=== PATIENT | male | born 1990 | race African-American/Black ===

== ENCOUNTER 2020-01-05 04:03 | Emergency (ER) | payer OTHER ==
[~2020-01-05] VITALS: Ht 177.8 cm; Wt 81.7 kg
[2020-01-05 05:45] LABS: ANION GAP 6 mmol/L (7-16); BUN 17 mg/dL (7-18); CALCIUM 8.2 mg/dL (8.5-10.1); CHLORIDE 100 mmol/L (98-107); CO2 29 mmol/L (21-32); CREATININE 1.3 mg/dL (0.7-1.3); GLUCOSE 112 mg/dL (74-106); POTASSIUM 4.3 mmol/L (3.5-5.1); SODIUM 135 mmol/L (136-145)
[2020-01-05 05:46] LABS: ABSOLUTE NEUTROPHILS 3.1 thou/uL (1.4-8.2); BASOPHILS 0.9 % (0.0-2.0); EOSINOPHILS 1.4 % (0.0-3.0); HEMATOCRIT 46.9 % (42.0-52.0); HEMOGLOBIN 15.5 gm/dL (14.0-18.0); LYMPHOCYTES 24.4 % (24.0-44.0); MCH 29.4 pg (26.0-34.0); MCV 89.2 fL (80.0-100.0); MONOCYTES 7.7 % (1.0-8.0); PLATELET COUNT 142 thou/uL (150-400); POLYS 65.6 % (36.0-66.0); RBC 5.26 mil/uL (4.50-6.00); RDW 13.5 % (10.5-14.5); WBC 4.7 thou/uL (4.0-11.0)
[2020-01-05 05:56] LABS: ALBUMIN 3.9 g/dL (3.4-5.0); MAGNESIUM 1.8 mg/dL (1.8-2.4); SGOT 28 U/L (15-37); SGPT 25 U/L (30-65); TOTAL BILIRUBIN 0.4 mg/dL (0.2-1.0); TOTAL PROTEIN 7.5 g/dL (6.4-8.2); TROPONIN-I <0.06 ng/mL (<0.06)
[2020-01-05 06:43] LABS: URINE BILIRUBIN NEGATIVE (Negative); URINE BLOOD NEGATIVE (Negative); URINE CLARITY CLEAR; URINE COLOR YELLOW; URINE GLUCOSE-RANDOM* NEGATIVE (Negative); URINE KETONES NEGATIVE (Negative); URINE LEUKOCYTES-REFLEX NEGATIVE (Negative); URINE NITRITE-REFLEX NEGATIVE (Negative); URINE PROTEIN (DIPSTICK) NEGATIVE (Negative); URINE SPECIFIC GRAVITY >= 1.030 (1.005-1.035); URINE UROBILINOGEN 0.2 E.U./dl (0.2-1.0)
[2020-01-05 07:24] LABS: AMP/METHAMP Negative (Negative); BARBITURATES Negative (Negative); BENZODIAZEPINES Negative (Negative); COCAINE Negative (Negative); METHADONE Negative (Negative); OPIATES Negative (Negative); PCP Negative (Negative)
[2020-01-05] MEDS ORDERED: MOBIC15 MG PO (07:26)
[2020-01-05 07:39] VITALS: BP 117/62
--- NOTE | 2020-01-05 14:50 | NUR ---
CALLED PT AT 14:44 TO NOTIFY OF RESULTS. PT HUNG UP PHONE PRIOR TO GIVING PT RESULTS. WHEN CALLED PT AGAIN, RECEIVED MESSAGE THAT MAILBOX WAS NOT SET UP. CALLED NEXT OF KIN TO NOTIFY PT THAT THEY NEED TO CALL ED DEPT.
== END 2020-01-05 07:39 | disposition home or self-care (01) ==
LOC: ER 04:03
PROVIDERS: Emergency Medicine
DX: R51 Headache (principal); Z20.828 Contact with and (suspected) exposure to other viral communicable diseases; M79.18 Myalgia, other site; R19.7 Diarrhea, unspecified; Z88.1 Allergy status to other antibiotic agents